=== PATIENT | female | born 2000 | race Caucasian/White ===

== ENCOUNTER 2021-05-17 08:46 | Emergency (ER) | payer BC ==
[2021-05-17 09:19] VITALS: BP 118/78; PULSE 101; TEMP 98.5; BMI 21.9
[2021-05-17] MEDS ORDERED: SODIUM CHLORIDE 0.9% 500 ML INFUS.BAG IV ONE (10:40)
[2021-05-17] MEDS ORDERED: ONDANSETRON 4 MG/2 ML VIAL IVPUSH ONE (10:40)
[2021-05-17] MEDS ORDERED: morphine CARPU-JECT 4 MG/1 ML DISP.SYRIN IVPUSH ONE (10:41)
[2021-05-17] MEDS ORDERED: ONDANSETRON 4 MG/2 ML VIAL ONE (10:46)
[2021-05-17] MEDS ORDERED: morphine SULFATE 4 MG/ML VIAL ONE (10:46)
[2021-05-17] MEDS ORDERED: ACETAMINOPHEN 1000 MG/100 ML VIAL IVPB ONE (11:13)
[2021-05-17] MEDS ORDERED: ACETAMINOPHEN INJECTION 100 ML IVPB ONE (11:13)
[2021-05-17 11:20] LABS: PH,URINE 8.5 (5.0-8.0); URINE APPEARANCE CLEAR; URINE BILIRUBIN NEGATIVE (NEGATIVE); URINE COLOR YELLOW; URINE GLUCOSE (UA) NEGATIVE (NEGATIVE); URINE KETONE NEGATIVE (NEGATIVE); URINE LEUK ESTERASE NEGATIVE (NEGATIVE); URINE NITRITE NEGATIVE (NEGATIVE); URINE PROTEIN NEGATIVE (NEGATIVE)
[2021-05-17 11:43] LABS: CALCIUM 9.6 mg/dL (8.5-10.1)
[2021-05-17 11:45] LABS: BASO % 0.6 % (0-2.0); HEMATOCRIT 41.8 % (32.4-45.2); HEMOGLOBIN 13.9 GM/dL (10.7-15.3); MCH 29.3 pg (25.7-33.7); MCHC 33.3 g/dl (32.0-36.0); MONO % 4.5 % (3.8-10.2); NEUT % 82.9 % (42.8-82.8); PLATELET COUNT 237 10^3/uL (134-434); RBC 4.75 M/mm3 (3.60-5.2); RDW 13.3 % (11.6-15.6); WHITE BLOOD COUNT 10.9 K/mm3 (4.0-10.0)
[2021-05-17 11:47] LABS: CREATININE 0.7 mg/dL (0.55-1.3)
[2021-05-17 11:48] LABS: BILIRUBIN,TOTAL 0.7 mg/dL (0.2-1)
[2021-05-17 11:49] LABS: TOT PROT 8.1 g/dl (6.4-8.2)
== END 2021-05-17 17:21 ==
LOC: JER 08:46
PROC: 3E033GC Introduction of Other Therapeutic Substance into Peripheral Vein, Percutaneous Approach (ICD-10-PCS; principal; 2021-05-17)
DX: R10.31 Right lower quadrant pain (principal)
CPT/HCPCS: 36415; 74177-TC; 76830-TC; 80053; 81003; 83690; 84703; 85025; 87086; 99285-25; J0131; Q9967